=== PATIENT | female | born 1945 | race Caucasian/White ===

== ENCOUNTER 2025-05-08 06:56 | Inpatient (IN) | payer MEDICARE, OTHER, SELFPAY ==
[2025-05-07 18:37] VITALS: BP 149/88
[2025-05-07 18:41] VITALS: BMI 20.2
--- NOTE | 2025-05-07 19:06 | ED.GENMED ---
History of Present Illness
General
Chief Complaint: Flank Pain
Source: patient
Exam Limitations: none
Time Seen by Provider: 05/07/25 18:58
History of Present Illness
History of Present Illness:
See MDM
Past History
Past History
ED Past Medical History: Cancer
ED Past Surgical History: Appendectomy and Urological
Social History
Tobacco: Non-smoker
Alcohol: None
Phy Exam
Physical Exam
Physical Exam:
See MDM
Course
Orders/Labs/Results
Orders:
Orders
05/07/25 19:05
CT Abd/pelvis W Iv Cont Urgent
Comment:
Reason For Exam: left flank pain
0.9% Sodium Chloride 1000 ml [Nss] 1,000 ml IV BOLUS
Ketorolac [Toradol] 30 mg IV NOW STA
Ondansetron Injectable [Zofran] 4 mg IV NOW STA
05/07/25 19:12
Complete Blood Count/With Diff Urgent
Comprehensive Metabolic Panel Urgent
Urinalysis Reflex To Culture Urgent
Date Specimen was Collected: 05/07/25
Time Specimen was Collected: 19:09
Urine Microscopic Reflex Cult Urgent
Urine Culture Urgent
BELEM Source: U
Specimen Description:
Date Specimen was Collected: 05/07/25
Time Specimen was Collected: 19:09
05/07/25 20:51
Morphine Sulfate 4 mg IV NOW STA
05/07/25 21:38
CefTRIAXone [Rocephin] 1,000 mg IV NOW STA
HYDROmorphone [Dilaudid] 1 mg IV NOW STA
Abnormal Lab Results
05/07/25
19:12
RBC 3.60 L 10^6/uL
(4.20-5.40)
Hgb 10.8 L g/dL
(12.0-16.0)
Hct 31.1 L %
(37.0-47.0)
Lymphocytes % 18.3 L %
(20.5-51.1)
Chloride 108 H mmol/L
(98-107)
BUN 28 H mg/dl
(7-17)
Glucose 110 H mg/dl
(70-99)
Ur Occult Blood Reflex 1+ A
(Negative)
Urine Nitrite (Reflex) Positive A
(Negative)
Leukocyte Esterase Rfl 3+ A
(Negative)
Urine RBC 3-6 A /HPF
(0-2)
Urine WBC (Reflex) >100 A /HPF
(0-5)
Urine Bacteria (Reflex) Many A
(Negative)
Urine Albumin (Reflex) 1+ A
(Neg - Trace)
05/07/25 19:12
05/07/25 19:12
Vital Signs
Initial and Last Documented VS:
Initial Vital Signs
Pulse Resp Pulse Ox
60 16 100
05/07/25 18:17 05/07/25 18:17 05/07/25 18:17
Last Documented Vital Signs
Temp Pulse Resp BP Pulse Ox
97.9 F 64 27 159/86 99
05/07/25 18:42 05/07/25 21:30 05/07/25 21:30 05/07/25 21:00 05/07/25 21:30
MDM/Problems Addressed
Differential Diagnosis Includes:
Note:
CHIEF COMPLAINT(S)
Abdominal and flank pain.
HISTORY OF PRESENT ILLNESS
The patient is a 80-year-old female with a history of an ileostomy and bladder cancer, who presented with abdominal and flank pain. She reported that her symptoms began the previous day, initially as slight discomfort, which she attributed to
physical exertion. However, the pain persisted, leading her to seek medical attention. The patient described the pain as similar to a previous kidney infection, though she admitted she couldnt be certain without hospital tests. She reported no
recent constipation. There were no reports of fever or urinary tract infections by the patient. The pain did not intensify with palpation.
PAST MEDICAL AND SURGICAL HISTORY
The patient has a history of bladder cancer and had an ileostomy placed approximately 15 years ago.
SOCIAL DETERMINANTS AFFECTING HEALTH
The patient mentioned receiving care typically at [facility], indicating potential barriers to continuity of care.
MEDICATIONS
No current medications were specifically mentioned.
PHYSICAL EXAM
General: Alert, no acute distress.
Skin: Warm, dry.
Head: Normocephalic, atraumatic
Neck: Appears supple, trachea midline.
Eyes, Ears, Nose, Mouth, and Throat: Mildly dry mucous membranes
Cardiovascular: No signs of cyanosis
Respiratory: Respirations are non-labored.
Abdomen: Non-distended. No abdominal or flank tenderness
Musculoskeletal: No deformities
Neurological: No focal neurological deficit observed.
Psychiatric: Cooperative, appropriate mood and affect.
PROBLEM LIST
Acute Problems:
- Abdominal pain.
- Flank pain.
- Possible urinary tract infection.
PLAN
- Perform a computed tomography (CT) scan to evaluate the abdominal and flank pain and rule out any underlying issues.
- Conduct blood work to assess general health status and look for signs of infection, or other hematological anomalies.
- Administer analgesics and anti-nausea medication as needed for symptom control.
- Evaluate the urine, acknowledging that a full urine culture may identify possible infections.
- Depending on the results of the CT scan and laboratory tests, consider initiating empirical treatment for a urinary tract infection even in the absence of overt systemic infection markers, given her age and the symptomatology.
DIFFERENTIAL DIAGNOSIS
The Differential Diagnosis includes, in no particular order and is not limited to:
- Urinary tract infection
- Renal calculi
- Pyelonephritis
- Musculoskeletal pain
- Abdominal aortic aneurysm
- Gastrointestinal obstruction
- Diverticulitis
- Ischemic colitis
- Malignancy
- Referred pain from spinal degeneration
SUMMARY OF ENCOUNTER
The patient, a 80-year-old female with a history of an ileostomy and bladder cancer, presented with abdominal and flank pain reminiscent of a past kidney infection. She was evaluated in the emergency department, where her urinalysis revealed
bacteria, raising suspicion for pyelonephritis versus colonization. A CT scan showed no pathology except mild constipation changes. Despite multiple reassessments, the patient remained uncomfortable. Given her symptoms, history, and urinalysis
findings, a decision was made to treat for possible pyelonephritis.
DISPOSITION
Admit to the hospitalist service for further workup.
ASSESSMENT
Possible pyelonephritis versus urinary tract colonization.
PLAN
- Admit for further evaluation and management.
- Treat empirically for pyelonephritis given the urinalysis findings, patient history, and current discomfort.
INDEPENDENT REVIEW OF LABS AND INTERPRETATION OF TESTS
My independent review of the urinalysis indicates the presence of bacteria, suggesting a possible urinary infection.
My independent interpretation of the CT scan shows no significant pathology other than mild constipation changes.
MEDICAL DECISION MAKING
-Complexity of Data Reviewed: Chronic conditions affecting care: Bladder cancer, ileostomy. Differential diagnosis includes pyelonephritis, urinary tract infection, and renal calculi.
-Data:
Category 1
Urinalysis revealed bacteria, considered for managing possible pyelonephritis.
Category 2
My independent interpretation of the CT scan reveals no significant pathology aside from mild constipation changes.
-Risk:
Care significantly affected by the patient�s exposure to continuity of care barriers, potentially impacting follow-up and management consistency.
DIAGNOSIS
Pyelonephritis, unspecified - ICD-10 N10
*Pulse Oximetry
SaO2: 99
Oxygen Mode of Delivery: Room air
Patient hypoxic: no
*Critical Care Note
Total Time (30-74mins, 75-104mins- exclusive of procedures): Not Applicable
ED Attending Note
-
Portions of this chart may have been created with voice recognition software.� Occasional wrong word or��sound alike� substitutions may have occurred due to the inherent limitations of voice recognition software.
Discharge Plan
Departure
Patient Disposition: Admit
Date of Disposition: 05/07/25
Time of Disposition: 21:45
Admit to: Med/Surg
Presentation/result/management discussed w/ accepting MD/DO: Hospitalist
Discharge Problem:
Acute pyelonephritis
Referrals:
Mabel Arguelles CRNP [Family Provider, Family Practice]
Interventions
Interventions:
*Risk Screen - Suicide Last Done: 05/07/25 18:42
*General Assessment Last Done: 05/07/25 18:42
*Neglect/Abuse Screening Last Done: 05/07/25 18:42
*ED- Fall Risk Assessment Last Done: 05/07/25 18:42
*ED COVID-19 Vaccine History Last Done: 05/07/25 18:42
XT-Jmgioe-Veovjympvw Assessment Last Done: 05/07/25 18:45
ED-Female Genitourinary Assessment Last Done: 05/07/25 18:45
Discharge Date and Time
Print Language: PERSIAN
[2025-05-07 19:11] VITALS: BP 152/87
[2025-05-07] MEDS: TORADOL 30 MG IV (19:14)
[2025-05-07] MEDS: ZOFRAN 4 MG IV (19:15)
[2025-05-07] MEDS: NSS 1000 IV (19:19)
[2025-05-07 19:21] LABS: Hematocrit 31.1 % (37.0-47.0); Hemoglobin 10.8 g/dL (12.0-16.0); Mean Corp Hgb Conc. 34.7 g/dL (33.0-37.0); Mean Corpuscular Volume 86.4 fL (81.0-99.0); Nucleated Red Blood Cells % 0 %; Platelet Count 263 10^3/uL (130-400); Red Cell Dist. Width 13.2 % (11.5-14.5)
[2025-05-07 19:31] LABS: Urine Character Slightly Cloudy (Clear)
[2025-05-07 19:40] LABS: ALT (SGPT) 23 U/L (0-35); AST (SGOT) 24 U/L (14-36); Albumin 4.2 g/dl (3.5-5.0); Alkaline Phosphatase 75 U/L (38-126); Blood Urea Nitrogen 28 mg/dl (7-17); Calcium 9.8 mg/dl (8.4-10.2); Carbon Dioxide 23 mmol/L (22-30); Chloride 108 mmol/L (98-107); Estimated Creatinine Clearance 51 ml/min; Glucose 110 mg/dl (70-99); Potassium 4.3 mmol/L (3.5-5.1); Sodium 137 mmol/L (135-145); Total Protein 6.3 g/dl (6.3-8.2); eGFR > 60.00
[2025-05-07 19:46] LABS: Urine Squamous Cell None seen /LPF (Few)
[2025-05-07 19:47] LABS: Urine White Cell >100 /HPF (0-5)
[2025-05-07 20:00] VITALS: BP 178/89
[2025-05-07 21:00] VITALS: BP 159/86
[2025-05-07] MEDS: MORPHINE SULFATE 4 MG IV (21:05)
[2025-05-07] MEDS: DILAUDID 1 MG IV (21:45)
[2025-05-07] MEDS: ROCEPHIN 1000 MG IV (21:46)
[2025-05-07 22:00] VITALS: BP 161/85
--- NOTE | 2025-05-07 22:19 | HPS.HSE ---
Addendum entered and electronically signed by Aleks Pozo DO 05/07/25 22:51:
Patient seen and examined independently. Agree with findings and plan as set forth by Sintia Shah PA-C.
Patient is a 80y F with PMH significant for bladder cancer s/p cystectomy who presents to ED complaining of L lower back pain. Patient states that she has been very active lately - but notes that this is not unusual for her. She noted some pain
in the L low back last PM. This increased throughout the day today until it became quite severe this afternoon / evening. Patient states that she had N/V after dinner. She felt 'flushed'. No issues with urostomy output. No other new / recent
complaints.
Ass:
L Back Pain
UTI
Urostomy Status
Bladder Cancer s/p Cystectomy
Hypothyroidism
Plan:
Observe overnight for further evaluation and treatment.
Continue IV ceftriaxone pending culture data.
Discomfort seems musculoskeletal in origin. CT A/P without perinephric stranding or other acute intra-abdominal process to explain discomfort.
Pain control, heat application, etc.
Follow for clinical improvement.
Monitor for development of fever, leukocytosis or new symptoms / complaints.
Original Note:
Family Physician
-
Family Physician: Mabel Arguelles
Chief Complaint
-
Left Flank Pain
History of Present Illness
Patient is a 80 y/o female past medical history of bladder cancer s/p cystectomy with ileal conduit urostomy who presents with left flank pain. Patient reports some mild pain yesterday and this morning. She went out to eat with her friend but
didn't eat much as she didn't have much of appetite. This afternoon patient reports pain got significantly worse and she had several episodes of vomiting. She describes the pain as a sharp stabbing that is worse with movement. She reports feeling
a little flushed today, but denies any fevers or chills. She report daily movements described as loose but states this is chronic and unchanged.
Medical History
Past Medical History
Past Medical History: Reports Other
Additional Past Medical History:
Hypothyroidism
Bladder Cancer
Past Surgical History: Reports Other
Additional Past Surgical History:
Cystectomy with Ileal Conduit Urostomy
Appendectomy
Right Hip Replacement
Social History
Tobacco: Non-smoker
Family History
Family History: Not pertinent
Allergies / Home Medications
Allergies reflects when Allergies were last updated in [facility].
Home Medications with original date entered in [facility]
Allergy/Medication List:
Allergies
Allergy/AdvReac Type Severity Reaction Status Date / Time
No Known Allergies Allergy Verified 05/07/25 18:20
Home Medications
levothyroxine 100 mcg tablet (Synthroid) 100 mcg PO DAILY 05/07/25
Review of Systems
-
A 12 point ROS was completed and negative except as noted: Yes
Constitutional: Denies Fever
Respiratory: Denies Cough or Trouble Breathing
Cardiac: Denies Chest Pain or Palpitations
Abdomen/GI: Reports Vomiting
: Reports Flank Pain
Physical Exam
Vital Signs
Vital Signs
Temp Pulse Resp BP Pulse Ox
97.9 F 64 27 159/86 99
05/07/25 18:42 05/07/25 21:30 05/07/25 21:30 05/07/25 21:00 05/07/25 21:30
Physical Exam
General: Comfortable and Conversant
HEENT: Anicteric and Moist mucous membranes
Respiratory: Clear and Non Labored Respirations
Cardiac: S1/S2 and Regular Rhythm
GI: Soft and Non Tender
Genito-urinary: No costovertebral tender and Other (RLQ Urostomy)
Musculoskeletal: No Clubbing, No Cyanosis and Other (Palpable left paraspinal muscle spasms)
Skin: Warm and Dry
Neuro: Awake, Alert, Oriented and No Motor Deficits
Psych: Calm
Laboratory Results
-
05/07/25 19:12
05/07/25 19:12
Laboratory Results
Total Bilirubin 0.5 mg/dl (0.2-1.3) 05/07/25 19:12
AST 24 U/L (14-36) 05/07/25 19:12
ALT 23 U/L (0-35) 05/07/25 19:12
Alkaline Phosphatase 75 U/L (38-126) 05/07/25 19:12
Abd/Pelvis CT Scan:
Changes of prior cystectomy with right lower quadrant urostomy. There is a parastomal hernia containing nonobstructed transverse colon.
No acute findings in the abdomen or pelvis. Mild colonic stool burden.
Data Reviewed
-
CT Scan: Report Reviewed by me
Lab Data: Labs Reviewed by me
Impression/Plan
-
Left Flank Pain, suspect likely musculoskeletal, doubt pyelonephritis given lack of fever, leukocytosis or perinephric stranding on imaging
-Add Lidocaine Patch
-Trial heat application to the left flank
-Continue Tylenol for mild pain, Toradol for moderate and Oxycodone for severe pain - Attempt to avoid narcotics due to constipation noted on CT scan
Urinary Tract Infection
-Continue ceftriaxone
-Await urine culture
Hypothyroidism
-Continue levothyroxine
Hx Bladder Cancer s/p Cystectomy
DVT proph: SCDs
Code Status: Full Code
[2025-05-07 23:00] VITALS: BP 149/73
[2025-05-08] VITALS (8 sets, daily range): BP systolic 101–152; BP diastolic 51–90; PULSE 55–56; O2SAT 97; BMI 19.3
[2025-05-08] MEDS: ROXICODONE 5 MG PO (01:23)
[2025-05-08] MEDS: NSS 1000 IV ×2 (01:33→16:37)
--- NOTE | 2025-05-08 02:33 | PTCARENOTE ---
received pt from ED at 0100. pt ambulated from stretcher to bed. pt orientated to room and call segovia within reach. pt complains of 8/10 L flank pain, 5 mg Roxicodone PO given. pt offers no additional complaints.
[2025-05-08 08:17] LABS: Hematocrit 30.0 % (37.0-47.0); Hemoglobin 9.7 g/dL (12.0-16.0); Mean Corp Hgb Conc. 32.3 g/dL (33.0-37.0); Mean Corpuscular Volume 89.6 fL (81.0-99.0); Platelet Count 242 10^3/uL (130-400); Red Cell Dist. Width 13.0 % (11.5-14.5)
[2025-05-08 08:48] LABS: Blood Urea Nitrogen 25 mg/dl (7-17); Calcium 8.8 mg/dl (8.4-10.2); Carbon Dioxide 25 mmol/L (22-30); Chloride 110 mmol/L (98-107); Estimated Creatinine Clearance 56 ml/min; Glucose 82 mg/dl (70-99); Potassium 4.1 mmol/L (3.5-5.1); Sodium 138 mmol/L (135-145); eGFR > 60.00
[2025-05-08] MEDS: LIDOCAINE 4% PATCH 1 PATCH TOPICAL (09:31)
[2025-05-08] MEDS: SYNTHROID 100 MCG PO (09:31)
[2025-05-08] MEDS: TORADOL 10 MG IV ×2 (09:48→20:18)
--- NOTE | 2025-05-08 11:13 | W.PN.HOSP.TC ---
Today's Communication/Plan
-
add blood culture
change Rocephin to noon time, increase dose to 2 gm
Assessment / Plan
Assessment / Plan
Physical Exam
General: Comfortable and Conversant
HEENT: Anicteric and Moist mucous membranes
Respiratory: Clear and Non Labored Respirations
Cardiac: S1/S2 and Regular Rhythm
GI: Soft and Non Tender
Genito-urinary: No costovertebral tender and Other (RLQ Urostomy)
Musculoskeletal: No Clubbing, No Cyanosis and Other (Palpable left paraspinal muscle spasms)
Skin: Warm and Dry
Neuro: Awake, Alert, Oriented and No Motor Deficits
Psych: Calm
A/P:
Left Flank Pain, suspect likely musculoskeletal, doubt pyelonephritis given lack of fever, leukocytosis or perinephric stranding on imaging
-Add Lidocaine Patch
CT scan : changes of prior cystectomy with right lower quadrant urostomy. There is a parastomal hernia containing nonobstructed transverse colon. No acute findings in the abdomen or pelvis. Mild colonic stool burden.
-Trial heat application to the left flank
-Continue Tylenol for mild pain, Toradol for moderate and Oxycodone for severe pain - Attempt to avoid narcotics due to constipation noted on CT scan
Urinary Tract Infection due to urostomy
-Continue ceftriaxone but increase to 2 gm,
-Await urine culture
Add blood culture
Hypothyroidism
-Continue levothyroxine
Hx Bladder Cancer s/p Cystectomy
DVT proph: SCDs
Code Status: Full Code
Total time spent to see the patient, examine the patient, review data and lab results, discuss treatment plan with patient, nursing staff around 55 minutes
Anticipated Discharge: > 48 hours
Subjective/Interval History
-
Date of Service: May 08, 2025
No renal colic on left side
No chest pain
No fevers
Objective Data
-
Labs:
Laboratory Results
05/08/25
07:51
WBC 7.0
Hgb 9.7 L
Hct 30.0 L
Plt Count 242
Sodium 138
Potassium 4.1
Chloride 110 H
Carbon Dioxide 25
BUN 25 H
Creatinine 0.7
Glucose 82
Calcium 8.8
Vital Signs:
Vital Signs
Temp Pulse Resp BP Pulse Ox
98 F 76 16 126/69 96
05/08/25 07:00 05/08/25 07:00 05/08/25 07:00 05/08/25 07:00 05/08/25 07:00
I&O
05/07/25 05/08/25 05/09/25
06:59 06:59 06:59
Intake Total 880 / 880
Output Total 300 / 300
Balance 580 / 580
[2025-05-08] MEDS: STERILE WATER FOR INJECTION 20 ML IV (12:18)
[2025-05-08] MEDS: ROCEPHIN 2000 MG IV (12:26)
[2025-05-08] MEDS: TYLENOL 650 MG PO (12:33)
--- NOTE | 2025-05-08 16:29 | CM ---
Initial assessment completed with patient who lives alone in a 3 story plus a lower level home, B/B on 2nd with 1/2 bath on 1st., 5 steps to enter. [employer] patient was independent in ADL's and ambulation, drives. Does have a RW in the home and urostomy
supplies. No in home services. Does have a HC-POA. No veterans benefits. No psychiatric hospitalizations. [employer] is Mabel Arguelles with [facility]. Pharmacy is [facility] on [address] in [place]. Discharge POC: Home with no needs.
--- NOTE | 2025-05-08 19:50 | PTCARENOTE ---
pt complained of chest pain, primarily over her left breast without radiation. Rating it 5/10 in severity. VSS, EKG showing SB. SUPPORT MERCHANDISER made aware. Troponin level ordered and drawn. Plan of care ongoing.
[2025-05-08] MEDS: REMOVE LIDOCAINE PATCH 1 PATCH REMOVE (20:19)
[2025-05-08 21:23] LABS: Troponin I < 0.012 ng/ml
[2025-05-08] MEDS: MELATONIN 5 MG PO (23:59)
[2025-05-08] MEDS: MAALOX 30 ML PO (23:59)
[2025-05-09] MEDS: NSS 1000 IV (04:33)
[2025-05-09] MEDS: LIDOCAINE 4% PATCH 1 PATCH TOPICAL (07:19)
[2025-05-09] MEDS: SYNTHROID 100 MCG PO (07:20)
[2025-05-09 07:45] VITALS: BP 145/76
[2025-05-09 07:46] LABS: Hematocrit 28.9 % (37.0-47.0); Hemoglobin 9.5 g/dL (12.0-16.0); Mean Corp Hgb Conc. 32.9 g/dL (33.0-37.0); Mean Corpuscular Volume 89.8 fL (81.0-99.0); Platelet Count 233 10^3/uL (130-400); Red Cell Dist. Width 12.8 % (11.5-14.5)
[2025-05-09 08:17] LABS: Blood Urea Nitrogen 20 mg/dl (7-17); Calcium 8.6 mg/dl (8.4-10.2); Carbon Dioxide 24 mmol/L (22-30); Chloride 112 mmol/L (98-107); Estimated Creatinine Clearance 56 ml/min; Glucose 81 mg/dl (70-99); Potassium 4.2 mmol/L (3.5-5.1); Sodium 137 mmol/L (135-145); eGFR > 60.00
[2025-05-09 08:23] LABS: Troponin I < 0.012 ng/ml
--- NOTE | 2025-05-09 09:40 | W.PN.HOSP.TC ---
Today's Communication/Plan
-
Await blood culture
Await urine culture to finalize, pt lives alone
Stop IVF while oral intake is good.
Encouarge ambulation
Assessment / Plan
Assessment / Plan
Physical Exam
General: Comfortable and Conversant
HEENT: Anicteric and Moist mucous membranes
Respiratory: Clear and Non Labored Respirations
Cardiac: S1/S2 and Regular Rhythm
GI: Soft and Non Tender
Genito-urinary: No costovertebral tender and Other (RLQ Urostomy)
Musculoskeletal: No Clubbing, No Cyanosis and Other (Palpable left paraspinal muscle spasms)
Skin: Warm and Dry
Neuro: Awake, Alert, Oriented and No Motor Deficits
Psych: Calm
A/P:
Left Flank Pain,
-Added Lidocaine Patch
Much better, no pain or tenderness now
CT scan : changes of prior cystectomy with right lower quadrant urostomy. There is a parastomal hernia containing nonobstructed transverse colon. No acute findings in the abdomen or pelvis. Mild colonic stool burden.
-Trial heat application to the left flank
-Continue Tylenol for mild pain, Toradol for moderate and Oxycodone for severe pain - Attempt to avoid narcotics due to constipation noted on CT scan
Complicated Urinary Tract Infection due to urostomy
No renal colic
No hematuria
No fever or chills
No chest pain
She is feeling much better, tolerating diet well and drinking well.
-Continue ceftriaxone but increase to 2 gm,
-Urine culture , : + E Coli
Await blood culture
Hypothyroidism
-Continue levothyroxine
Hx Bladder Cancer s/p Cystectomy
DVT proph: SCDs
Code Status: Full Code
Total time spent to see the patient, examine the patient, review data and lab results, discuss treatment plan with patient, nursing staff around 55 minutes
Anticipated Discharge: 24 - 48 hours
Subjective/Interval History
-
Date of Service: May 09, 2025
No renal colic
No hematuria
No fever or chills
No chest pain
She is feeling much better, tolerating diet well and drinking well.
Objective Data
-
Labs:
Laboratory Results
05/09/25
07:08
WBC 6.2
Hgb 9.5 L
Hct 28.9 L
Plt Count 233
Sodium 137
Potassium 4.2
Chloride 112 H
Carbon Dioxide 24
BUN 20 H
Creatinine 0.7
Glucose 81
Calcium 8.6
Vital Signs:
Vital Signs
Temp Pulse Resp BP Pulse Ox
98 F 59 24 130/57 97
05/08/25 23:23 05/08/25 23:23 05/08/25 23:23 05/08/25 23:23 05/08/25 23:23
I&O
05/08/25 05/09/25 05/10/25
06:59 06:59 06:59
Intake Total 880 / 880 1430 / 1430 960 / 960
Output Total 300 / 300 600 / 600 600 / 600
Balance 580 / 580 830 / 830 360 / 360
[2025-05-09] MEDS: ROCEPHIN 2000 MG IV (11:36)
[2025-05-09] MEDS: STERILE WATER FOR INJECTION 20 ML IV (11:36)
[2025-05-09 15:11] VITALS: BP 136/70
[2025-05-09] MEDS: REMOVE LIDOCAINE PATCH 1 PATCH REMOVE (20:08)
[2025-05-09] MEDS: ROXICODONE 5 MG PO (20:13)
[2025-05-09] MEDS: MELATONIN 5 MG PO (22:57)
[2025-05-09] MEDS: TYLENOL 650 MG PO (22:57)
[2025-05-09 23:10] VITALS: BP 142/68
[2025-05-10 07:30] VITALS: BP 154/71
[2025-05-10 07:32] LABS: Hematocrit 31.6 % (37.0-47.0); Hemoglobin 10.7 g/dL (12.0-16.0); Mean Corp Hgb Conc. 33.9 g/dL (33.0-37.0); Mean Corpuscular Volume 88.8 fL (81.0-99.0); Platelet Count 256 10^3/uL (130-400); Red Cell Dist. Width 12.7 % (11.5-14.5)
[2025-05-10 08:23] LABS: Blood Urea Nitrogen 14 mg/dl (7-17); Calcium 8.9 mg/dl (8.4-10.2); Carbon Dioxide 25 mmol/L (22-30); Chloride 110 mmol/L (98-107); Estimated Creatinine Clearance 65 ml/min; Glucose 88 mg/dl (70-99); Potassium 4.2 mmol/L (3.5-5.1); Sodium 137 mmol/L (135-145); eGFR > 60.00
[2025-05-10] MEDS: LIDOCAINE 4% PATCH 1 PATCH TOPICAL (09:31)
[2025-05-10] MEDS: SYNTHROID 100 MCG PO (09:32)
[2025-05-10] MEDS: TORADOL 10 MG IV (09:36)
--- NOTE | 2025-05-10 09:38 | W.PN.HOSP.TC ---
Today's Communication/Plan
-
Continue IV Rocephin
Possible discharge today if sensitivities return
Assessment / Plan
Assessment / Plan
HPI: 80y F with PMH significant for bladder cancer s/p cystectomy who presents to ED complaining of L lower back pain. Patient states that she has been very active lately - but notes that this is not unusual for her. She noted some pain in the
L low back last PM. This increased throughout the day today until it became quite severe this afternoon / evening. Patient states that she had N/V after dinner. She felt 'flushed'. No issues with urostomy output. No other new / recent
complaints.
A/P:
#Left Flank Pain
-Added Lidocaine Patch
Much better, no pain or tenderness now
CT scan : changes of prior cystectomy with right lower quadrant urostomy. There is a parastomal hernia containing nonobstructed transverse colon. No acute findings in the abdomen or pelvis. Mild colonic stool burden.
-Trial heat application to the left flank
-Continue Tylenol for mild pain, Toradol for moderate and Oxycodone for severe pain - Attempt to avoid narcotics due to constipation noted on CT scan
#Complicated Urinary Tract Infection due to urostomy
No hematuria
No fever or chills
No chest pain
She is feeling much better, tolerating diet well and drinking well.
-Continue ceftriaxone but increase to 2 gm
-Urine culture , : + E Coli, follow-up on sensitivities
-Blood cultures negative to date
Hypothyroidism
-Continue levothyroxine
Hx Bladder Cancer s/p Cystectomy
DVT proph: SCDs
Code Status: Full Code
Total time spent to see the patient on the floor, examine the patient, review data and lab results, discuss treatment plan with patient, nursing staff around 35 minutes.
Physical Exam
General: Comfortable and Conversant
HEENT: Anicteric and Moist mucous membranes
Respiratory: Clear and Non Labored Respirations
Cardiac: S1/S2 and Regular Rhythm
GI: Soft and Non Tender
Genito-urinary: (RLQ Urostomy)
Musculoskeletal: No Clubbing, No Cyanosis and Other (Palpable left paraspinal muscle spasms)
Anticipated Discharge: Within 24 hours
Subjective/Interval History
-
Date of Service: May 10, 2025
Patient reports feeling better, her left flank pain has improved. She has a urostomy. Denies chest pain, denies shortness of breath. No fever, no vomiting.
Objective Data
-
Labs:
Laboratory Results
05/10/25
07:18
WBC 7.4
Hgb 10.7 L
Hct 31.6 L
Plt Count 256
Sodium 137
Potassium 4.2
Chloride 110 H
Carbon Dioxide 25
BUN 14
Creatinine 0.6
Glucose 88
Calcium 8.9
Vital Signs:
Vital Signs
Temp Pulse Resp BP Pulse Ox
97.7 F 80 18 154/71 95
05/10/25 07:30 05/10/25 07:30 05/10/25 07:30 05/10/25 07:30 05/10/25 07:30
I&O
05/09/25 05/10/25 05/11/25
06:59 06:59 06:59
Intake Total 1430 / 1430 1800 / 1800
Output Total 600 / 600 2900 / 2900
Balance 830 / 830 -1100 / -1100
[2025-05-10] MEDS: ROCEPHIN 2000 MG IV (12:10)
[2025-05-10] MEDS: STERILE WATER FOR INJECTION 20 ML IV (12:10)
--- NOTE | 2025-05-10 15:06 | CM ---
Chart reviewed. Plan is for patient to d/c home when stable
No PT/OT needs per therapy
[2025-05-10 15:15] VITALS: BP 114/65
[2025-05-10 16:41] VITALS: BP 123/65; PULSE 65
[2025-05-10] MEDS: REMOVE LIDOCAINE PATCH 1 PATCH REMOVE (21:49)
[2025-05-10] MEDS: MELATONIN 5 MG PO (21:49)
[2025-05-10] MEDS: TYLENOL 650 MG PO (21:49)
[2025-05-10 23:43] VITALS: BP 128/65
[2025-05-11] MEDS: COLACE 100 MG PO (03:50)
[2025-05-11 07:50] VITALS: BP 140/64
[2025-05-11] MEDS: SYNTHROID 100 MCG PO (08:48)
[2025-05-11] MEDS: LIDOCAINE 4% PATCH 1 PATCH TOPICAL (08:48)
--- NOTE | 2025-05-11 09:03 | W.PN.HOSP.TC ---
Today's Communication/Plan
-
Discharge today
Assessment / Plan
Assessment / Plan
HPI: 80y F with PMH significant for bladder cancer s/p cystectomy who presents to ED complaining of L lower back pain. Patient states that she has been very active lately - but notes that this is not unusual for her. She noted some pain in the
L low back last PM. This increased throughout the day today until it became quite severe this afternoon / evening. Patient states that she had N/V after dinner. She felt 'flushed'. No issues with urostomy output. No other new / recent
complaints.
A/P:
#Left Flank Pain
-Added Lidocaine Patch
Much better, no pain or tenderness now
CT scan : changes of prior cystectomy with right lower quadrant urostomy. There is a parastomal hernia containing nonobstructed transverse colon. No acute findings in the abdomen or pelvis. Mild colonic stool burden.
-Trial heat application to the left flank
-Improving, was 2 out of 10 in intensity without any treatment, compared to 10 out of 10 upon admission
-Medically stable for discharge, follow-up with PCP in 1 week
#Complicated Urinary Tract Infection due to urostomy
No hematuria
No fever or chills
No chest pain
She is feeling much better, tolerating diet well and drinking well.
-She has received 3 days of IV Rocephin, will discharge on cefdinir to complete a 7-day course
-Urine culture , : + E Coli, pansensitive, also gram-negative bacilli�pending
-Blood cultures negative to date
Hypothyroidism
-Continue levothyroxine
Hx Bladder Cancer s/p Cystectomy
DVT proph: SCDs
Code Status: Full Code
Physical Exam
General: Comfortable and Conversant
HEENT: Anicteric and Moist mucous membranes
Respiratory: Clear and Non Labored Respirations
Cardiac: S1/S2 and Regular Rhythm
GI: Soft and Non Tender
Genito-urinary: (RLQ Urostomy)
Musculoskeletal: No Clubbing, No Cyanosis and Other (Palpable left paraspinal muscle spasms)
Anticipated Discharge: Today
Subjective/Interval History
-
Date of Service: May 11, 2025
Patient reports her left flank pain is improved, currently 2 out of 10 in intensity. It was 10 upon admission. No fever, no vomiting.
Objective Data
-
Vital Signs:
Vital Signs
Temp Pulse Resp BP Pulse Ox
98.1 F 62 16 140/64 97
05/11/25 07:50 05/11/25 07:50 05/11/25 07:50 05/11/25 07:50 05/11/25 08:43
I&O
05/10/25 05/11/25 05/12/25
06:59 06:59 06:59
Intake Total 1800 / 1800 480 / 480
Output Total 2900 / 2900 975 / 975
Balance -1100 / -1100 -495 / -495
--- NOTE | 2025-05-11 11:04 | W.DCSUMMARY ---
Discharge Summary
Discharge Data
Date of Admission: 05/08/25
Date of Discharge: 05/11/25
-
Pending Results: No
Hospital Course
Discharge diagnosis:
Left flank pain suspicious for musculoskeletal strain
Possible urinary tract infection
Transient nausea and vomiting
Urostomy
CT abdomen and pelvis:
Abdomen:
Liver: 3 mm hypodensity within the left hepatic lobe, likely a small cyst.
Bile Ducts: Within normal limits.
Gallbladder: Within normal limits.
Pancreas: Within normal limits.
Spleen: Within normal limits.
Adrenals: No discrete nodule.
Kidneys/Ureters: No hydronephrosis. There is layering mild hyperdensity within the superior pole of the left kidney and right renal pelvis. Represent contrast as no filling defect is visualized on delayed imaging
Bowel: No obstruction or wall thickening.
Peritoneum: No ascites or free air. Mild mesenteric stranding with mildly prominent mesenteric lymph nodes which can be seen in the setting of chronic enteric panniculitis.
Reproductive Organs: Not definitely visualized, possibly surgically absent. Bladder: Surgically absent.
Vessels: There is no abdominal aortic aneurysm. Mild atherosclerotic calcifications. The abdominal aorta is mildly tortuous.
Retroperitoneum: Within normal limits.
Abdominal Wall: Right lower quadrant urostomy with parastomal hernia containing nonobstructed colon.
Bones: No suspicious lesions. 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 Right total hip arthroplasty.
Hospital course:
80-year-old female with a past medical history of bladder cancer status post cystectomy with ileal conduit urostomy who is admitted with left flank pain, nausea, and vomiting. Patient reports lifting objects prior to admission. Her urine analysis
showed bacteria, nitrite, as well as leukocyte esterases. She does have an ileal conduit urostomy, and always has bacteria from that. She did not have fever or leukocytosis. Her CT of the abdomen and pelvis was negative for perinephric stranding.
She was treated with IV Rocephin. She received lidocaine patches and pain medications for suspected musculoskeletal strain.
After several days, her left flank pain improved dramatically. Urine cultures grew out pansensitive E. coli, and gram-negative bacilli. She is medically stable for discharge on cefdinir to complete a 7-day course. She needs to follow-up with her
primary care provider in 1 week.
Disposition: Home self-care
Discharge planning: Required 37 minutes
Discharge Plan
-
Patient Disposition: Home (Routine Discharge)
Discharge Diagnosis/Procedures: Possible urinary tract infection, possible musculoskeletal strain
Condition: Good
Diet: Regular
Activity: As tolerated
Driving Restrictions: As prior to admission
Referrals:
Mabel Arguelles CRNP [Family Provider, [facility]] - in one week
Prescriptions:
New
cefdinir 300 mg capsule
300 mg PO BID 4 Days Qty: 8 0RF
Continued
levothyroxine [Synthroid] 100 mcg tablet
100 mcg PO DAILY@06
Discharge Orders:
Discharge Patient (As Directed); Ordered 05/11/25
Ordered By: Abdelrahman Amaya
Discharge Date and Time
Discharge Date/Time: 05/11/25 13:33
Print Language: SAMI
[2025-05-11 11:30] VITALS: BP 130/60
[2025-05-11] MEDS: STERILE WATER FOR INJECTION IV (11:55)
[2025-05-11] MEDS: OMNICEF 300 MG PO (11:55)
== END 2025-05-11 13:33 | disposition home or self-care (01) | DRG 699 ==
LOC: 4 EAST ACU 06:56
PROVIDERS: Internal Medicine; Nurse Practitioner Family; Physician Assistant Medical; ADMITTING PHYSICIAN Hospitalist; ATTENDING PHYSICIAN Family Medicine; EMERGENCY PHYSICIAN Student in an Organized Health Care Education/Training Program; FAMILY PHYSICIAN Registered Nurse
DX: T83.518A Infection and inflammatory reaction due to other urinary catheter, initial encounter (principal); N39.0 Urinary tract infection, site not specified; K43.5 Parastomal hernia without obstruction or gangrene; Z85.51 Personal history of malignant neoplasm of bladder; Z90.6 Acquired absence of other parts of urinary tract; E03.9 Hypothyroidism, unspecified; Y73.2 Prosthetic and other implants, materials and accessory gastroenterology and urology devices associated with adverse incidents; B96.20 Unspecified Escherichia coli [E. coli] as the cause of diseases classified elsewhere; K76.89 Other specified diseases of liver; Z79.890 Hormone replacement therapy; Z87.440 Personal history of urinary (tract) infections; Z93.6 Other artificial openings of urinary tract status; Z96.641 Presence of right artificial hip joint
CPT/HCPCS: 74177; 80048; 80053; 81003; 81015; 84484; 85025; 85027; 87040; 87077; 87086; 87186; 93005; 96361; 96374; 96375; 97162; 97166; 97530; 99285; Q9967